=== PATIENT | female | born 1970 | race Caucasian/White ===

== ENCOUNTER → 2017-01-01 | Outpatient (CLI) | payer OTHER ==
[~2017-01-01] MED LIST: ACCUNEB SO1.25 MG/1 INH; ALLOPURINOL 10100 M1 PO; ASA5UEC PO; CALCIUM 500 +1 EAC5 PO; CARVEDILOL12.5 MG PO; CIPRO500 MG PO; FISH OIL 1,001000 M2 PO; FLEXERIL PO; GLUCOPHAGE XR500 MG PO; HYZAAR 50-12.51 EACH PO; IBUPROFEN 800800 MG PO; KLOR-CON 1010 MEQ PO; LEVOTHYROXINE 0.15MG PO; NAPROSYN500 MG PO; NIASPAN ER 101000 M1 PO; ONDANSETRON HCL4 M2 PO; PREVALITE PACKET4 GM PO; QUERCETIN DIHYDR1 GM PO; TRICOR145 MG PO; VITAMIN D2000 UNIT PO; WELCHOL 625 MG625 MG PO
== END ==
LOC: RAD 11:03
DX: J18.9 Pneumonia, unspecified organism (principal)

== ENCOUNTER → 2017-07-01 | Outpatient (CLI) | payer OTHER | LOC: RAD 01:58 | DX: Z12.31 Encounter for screening mammogram for malignant neoplasm of breast (principal) ==